=== PATIENT | male | born 1975 | race Caucasian/White ===

== ENCOUNTER 2021-07-29 23:45 | Emergency (ER) | payer BC, SELFPAY ==
--- NOTE | ~2021-07-29 | CT_ITS ---
EXAMINATION: CT brain wo con DATE: 07/30/2021 00:59 INDICATION: Syncope. Head injury. TECHNIQUE: Computed tomography (CT) of the head was performed without intravenous contrast. The mA wa s adjusted according to patient size. Iterative reconstruction technique was employed. The dose-lengt h product was 681.00 mGy-cm. COMPARISON: None FINDINGS: The cerebellar tonsils extend 6 mm inferior to foramen magnum, consistent with Chiari I mal formation. There is no intracranial hemorrhage, acute infarction, or abnormal intracranial mass lesio n. The ventricles are normal in size. There is mild mucosal thickening in the paranasal sinuses. The mastoid air cells are normal. The orbits are normal. IMPRESSION: 1. Chiari I malformation. Reviewed, dictated and finalized at location A. D LOADER IMPRESSION: 1. Chiari I malformation.
--- NOTE | ~2021-07-29 | XR_ITS ---
EXAMINATION: XR chest 2V DATE: 07/30/2021 00:14 INDICATION: Syncope. TECHNIQUE: Frontal and lateral views of the chest were obtained. COMPARISON: Chest 2 views 10/30/2015 FINDINGS: There are mild airspace opacities in the mid and lower lung zones. No pleural effusion or p neumothorax. The heart size is normal. There are changes of anterior fusion procedure in cervical spi ne. IMPRESSION: 1. Mild airspace opacities in the mid and lower lung zones, consistent with atelectasis versus pneumo stacie. Reviewed, dictated and finalized at location A. 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 Mild airspace opacities in the mid and lower lung zones, consistent with ate lectasis versus pneumonia.
[2021-07-29 23:43] VITALS: BP 165/100; PULSE 89; RESP 18; TEMP 36.1; O2SAT 97
[2021-07-29 23:57] VITALS: PULSE 87
--- NOTE | 2021-07-30 | ECG_ITS ---
Measurements Intervals [place] Rate: 90 P: 56 MI: 158 QRS: 27 QRSD: 94 T: 53 QT: 353 QTc: 433 Interpretive Statements SINUS RHYTHM POSSIBLE LEFT ATRIAL ENLARGEMENT INCOMPLETE RIGHT BUNDLE BRANCH BLOCK BASELINE ARTIFACT- I, II, III, AVR BORDERLINE ECG Electronically Signed On 07-30-2021 5:57:12 CANDY DIP[employer] by Stef Lennon D.O.
[2021-07-30 00:19] LABS: Basophils Absolute Auto 0.1 K/mm3 (0.0-0.1); Basophils Percent Auto 1.1 % (0.2-1.2); Eosinophils Absolute Auto 0.8 K/mm3 (0-0.3); Eosinophils Percent Auto 8.2 % (0-4.4); Hematocrit 42.7 % (42.0-52.0); Hemoglobin 14.2 g/dL (14.0-18.0); Immature Granulocyte Absolute 0.02 K/mm3 (0.00-0.031); Immature Granulocyte Percent A 0.2 % (0-0.5); Lymphocytes Absolute Auto 3.77 K/mm3 (0.9-3.2); Lymphocytes Percent Auto 41.3 % (18.3-44.2); Mean Corpuscular HGB Conc 33.3 g/dl (32-36); Mean Corpuscular Volume 90.3 fl (80-100); Mean Platelet Volume 10.2 fl (7.4-10.4); Monocytes Absolute Auto 0.7 K/mm3 (0.1-0.6); Monocytes Percent Auto 8.1 % (2.6-8.5); Neutrophils Absolute Auto 3.8 K/mm3 (1.3-6.7); Neutrophils Percent Auto 41.1 % (45.5-73.1); Platelet Count Result 220 k/mm3 (150-375); Red Blood Count 4.73 M/mm3 (4.6-6.20); Red Cell Distribution Width 13.4 % (11.5-14.5); White Blood Count 9.1 K/mm3 (4.5-10.0)
[2021-07-30 00:25] LABS: Prothrombin Time 12.3 Seconds (11.1-14.7)
[2021-07-30 00:26] LABS: Partial Thromboplastin Time 25.3 SECONDS (22.3-36.8)
[2021-07-30 00:28] LABS: Anion Gap 14 mmol/L (8-16); Blood Urea Nitrogen 10 mg/dL (9-20); Carbon Dioxide 23 mmol/L (22-30); Chloride 102 mmol/L (98-107); Estimated CRCL calculation 136 ml/min; Estimated Glomerular Filt Rate > 60; Glucose 101 mg/dL (65-110); Potassium 3.3 mmol/L (3.4-5.0); Sodium 139 mmol/L (137-145)
[2021-07-30 00:29] LABS: Ethanol 142 mg/dL (<10)
[2021-07-30 00:35] VITALS: BP 131/81; PULSE 78
[2021-07-30 00:36] VITALS: BP 139/84; PULSE 92
[2021-07-30 00:38] VITALS: BP 149/80; PULSE 90
[2021-07-30 00:40] LABS: Troponin I < 0.012 ng/mL (0.000-0.034)
[2021-07-30] MEDS: ACETAMINOPHEN 500 MG TABLET 1000 MG PO (00:45)
--- NOTE | 2021-07-30 00:58 | PC.NURSE ---
Returned from CT at this time.
[2021-07-30 00:59] VITALS: BP 145/72; PULSE 79; RESP 18; O2SAT 99
--- NOTE | 2021-07-30 01:09 | ED.SYNCOPE ---
HPI - Syncope General Chief Complaint: Syncope Stated Complaint: unresponsive x 5 min. now a/o x 3 Time Seen by Provider: 07/29/21 23:50 Related Data Home Medications Medication Instructions Recorded Confirmed meloxicam 15 mg PO DAILY 07/29/21 tramadol 50 mg PO Q6H PRN 07/29/21 07/29/21 Allergies Allergy/AdvReac Type Severity Reaction Status Date / Time hornet venom Allergy Anaphylaxis Verified 07/29/21 23:52 Review of Systems Review of Systems: All systems reviewed & are unremarkable except as noted in HPI and below Constitutional: Constitutional: Denies chills, Denies fever(s) and Denies weakness Eyes: Eyes: Denies change in vision ENT: Denies nasal congestion and Denies sore throat Cardiovascular: Cardiovascular: Denies chest pain, Denies rapid heart rate and Denies radiating jaw, neck or arm pain Respiratory: Respiratory: Denies cough, Denies dyspnea and Denies wheezing Gastrointestinal: Gastrointestinal: Denies abdominal pain, Denies diarrhea, Denies nausea and Denies vomiting Genitourinary: Genitourinary: Denies urinary incontinence Neurologic: Reports syncope, Denies headache(s), Denies focal weakness and Denies numbness PMFSH Past Medical History Medical History (Updated 07/30/21 @ 01:41 by Job Ballard MD) Healthy adult male Surgical History Surgical History (Updated 07/30/21 @ 01:16 by Job Ballard MD) H/O neck surgery History of back surgery History of shoulder surgery Social History Social History (Updated 07/30/21 @ 01:16 by Job Ballard MD) Alcohol intake: current Exam Narrative: GENERAL: Well-appearing, well-nourished, and in no acute distress. HEAD: Normocephalic, atraumatic. EYES: PERRL and EOMI. ENT: Mucous membranes moist. Small scratch lateral of the corner of the left lip. No evidence of injury to the tongue. CHEST: Clear to auscultation. No respiratory distress. HEART: Regular rate and rhythm. Normal peripheral pulses. ABDOMEN: Soft, nontender, nondistended. EXTREMITIES: Normal range of motion. No edema. SKIN: Warm, dry, no rash. NEURO: No focal deficits. Alert and oriented x3. PSYCH: Normal mood and affect. Course Course Emergency Course: Patient resting comfortably. Labs and vital signs unremarkable. Normal EKG. Symptoms likely related to alcohol intoxication. Discharge home. Vital Signs Vital signs: Vital Signs Temperature 97 F L 07/29/21 23:43 Pulse Rate 89 07/29/21 23:43 Respiratory Rate 18 07/29/21 23:43 Blood Pressure 165/100 H 07/29/21 23:43 Pulse Oximetry 97 07/29/21 23:43 Temperature 97 F L 07/29/21 23:43 Pulse Rate 79 07/30/21 00:59 Respiratory Rate 18 07/30/21 00:59 Blood Pressure 145/72 H 07/30/21 00:59 Pulse Oximetry 99 07/30/21 00:59 MDM - Syncope Lab Data Result diagrams: 07/30/21 00:07 07/30/21 00:07 Labs: Lab Results 07/30/21 07/30/21 07/30/21 Range/Units 00:07 00:07 00:07 WBC 9.1 (4.5-10.0) K/mm3 RBC 4.73 (4.6-6.20) M/mm3 Hgb 14.2 (14.0-18.0) g/dL Hct 42.7 (42.0-52.0) % MCV 90.3 (80-100) fl MCH 30.0 (26-34) pg MCHC 33.3 (32-36) g/dl RDW 13.4 (11.5-14.5) % Plt Count 220 (150-375) k/mm3 MPV 10.2 (7.4-10.4) fl Immature Gran % (Auto) 0.2 (0-0.5) % Neut % (Auto) 41.1 L (45.5-73.1) % Lymph % (Auto) 41.3 (18.3-44.2) % Cecil % (Auto) 8.1 (2.6-8.5) % Eos % (Auto) 8.2 H (0-4.4) % Baso % (Auto) 1.1 (0.2-1.2) % Lymph # (Auto) 3.77 H (0.9-3.2) K/mm3 Cecil # (Auto) 0.7 H (0.1-0.6) K/mm3 Eos # (Auto) 0.8 H (0-0.3) K/mm3 Baso # (Auto) 0.1 (0.0-0.1) K/mm3 Abs Immat Gran (auto) 0.02 (0.00-0.031) K/mm3 Absolute Neuts (auto) 3.8 (1.3-6.7) K/mm3 Absolute Nucleated RBC 0.0 (0.0-0.012) K/mm3 Nucleated RBC % 0.0 (0.0-0.2) % PT (11.1-14.7) Seconds INR APTT (22.3-36.8) SECONDS Sodium 139 (137-145) mmol/L Potassium
[2021-07-30 01:54] VITALS: BP 130/82; PULSE 74; RESP 18; TEMP 36.1; O2SAT 99
== END 2021-07-30 01:57 | disposition home or self-care (01) ==
PROVIDERS: Emergency Provider Emergency Medicine; PCP Family Medicine
DX: R55 Syncope and collapse (principal); F10.129 Alcohol abuse with intoxication, unspecified; Y90.6 Blood alcohol level of 120-199 mg/100 ml; R94.31 Abnormal electrocardiogram [ECG] [EKG]; I45.10 Unspecified right bundle-branch block
CPT/HCPCS: 36415; 70450; 71046; 80048; 80307; 84484; 85025; 85610; 85730; 93005; 99284; A9270

== ENCOUNTER 2022-04-28 09:03 | Emergency (ER) | payer BC, SELFPAY ==
[2022-04-28 09:30] VITALS: BP 130/87; PULSE 75; RESP 20; TEMP 36.1; O2SAT 100
--- NOTE | 2022-04-28 09:46 | ED.URI ---
HPI - URI/Sore Throat General Chief Complaint: Upper Respiratory Infection Stated Complaint: Sinus Time Seen by Provider: 04/28/22 09:46 Source: patient Mode of arrival: ambulatory Limitations: no limitations History of Present Illness HPI Narrative: 56-year-old male presents with complaint of nasal congestion, sinus pressure, postnasal drainage, fatigue, sweats for 3 days. Unsure if he has had a fever. States son has been sick with similar symptoms. Denies nausea vomiting diarrhea. Reports that his primary care physician always gave him steroids and antibiotic for sinus infections. All systems reviewed and negative except as noted above. Related Data Home Medications Medication Instructions Recorded Confirmed meloxicam 15 mg tablet 15 mg PO DAILY 07/29/21 tramadol 50 mg tablet 50 mg PO Q6H PRN Pain 07/29/21 07/29/21 Allergies Allergy/AdvReac Type Severity Reaction Status Date / Time hornet venom Allergy Anaphylaxis Verified 08/10/21 09:36 Review of Systems Review of Systems: CONSTITUTIONAL: Reports fever, chills, or sweats. EYES: Denies visual changes, redness, or discharge. ENT: reports rhinorrhea, congestion, sore throat. Denies otalgia. CARDIOVASCULAR: Denies chest pain, palpitations, or edema. RESPIRATORY: Denies cough or dyspnea. GASTROINTESTINAL: Denies abdominal pain, nausea, vomiting, or diarrhea. GENITOURINARY: Denies dysuria or hematuria. SKIN: Denies rash or itching. MUSCULOSKELETAL: Denies back pain, joint pain, or myalgia. NEUROLOGIC: Denies headache, numbness, or weakness. PSYCHIATRIC: Denies anxiety or depression. All other systems reviewed are negative, except as documented in HPI. [facility] Past Medical History Medical History (Updated 04/28/22 @ 10:05 by Syeda Dave NP) Healthy adult male Surgical History Surgical History (System 08/10/21 @ 09:36 by Cholo Franz) H/O neck surgery History of back surgery History of shoulder surgery Family History Family History (System 08/10/21 @ 09:36 by Cholo Franz) Mother Cerebrovascular accident Social History Social History (System 08/10/21 @ 09:36 by Cholo Franz) Alcohol intake: current Comments At time of signature, agree with nursing past medical, surgical, social and family history. There is no relevant family history pertinent to the presenting complaint. Exam Narrative: GENERAL: This is a well-nourished, well-developed patient, in no apparent distress. HEAD: normocephalic, atraumatic. EYES: PERRL. Sclera clear/white. Vision is grossly intact. EARS: External ears normal, auditory canals clear and without drainage, reports fluid bilateral TMs without erythema or perforation. NOSE: External nose normal with Clear nasal drainage, moderate congestion, bilateral maxillary sinus and frontal tenderness. THROAT: Mucous membranes moist, Erythema posterior pharynx with clear postnasal drainage. NECK: Neck supple, non-tender without lymphadenopathy, masses or thyromegaly. CARDIOVASCULAR: Regular rate and rhythm without murmurs, gallops, or rubs. RESPIRATORY: Clear to auscultation. Breath sounds equal bilaterally. No wheezes, rales, or rhonchi. SKIN: warm, Dry, intact with no suspicious lesions or rash, good texture and turgor. NEURO: awake, alert, and oriented to person, place and time. There were no obvious focal neurologic abnormalities. EXTREMITIES: No joint tenderness, effusion, or edema noted. Course Course Level of Care: Express Care Visit Vital Signs Vital signs: Vital Signs Temperature 36.1 C L 04/28/22 09:30 Pulse Rate 75 04/28/22 09:30 Respiratory Rate 20 04/28/22 09:30 Blood Pressure 130/87 04/28/22 09:30 Pulse Oximetry 100 04/28/22 09:30 Oxygen Delivery Room Air 04/28/22 09:30 Temperature 36.1 C L 04/28/22 09:30 Pulse Rate 75 04/28/22 09:30 Respiratory Rate 20 04/28/22 09:30 Blood Pressure 130/87 04/28/22 09:30 Pulse Oximetry 100 04/28/22 09:30 Oxygen
== END 2022-04-28 10:18 | disposition home or self-care (01) ==
PROVIDERS: Emergency Provider Nurse Practitioner Family; PCP Family Medicine
DX: J10.1 Influenza due to other identified influenza virus with other respiratory manifestations (principal); K21.9 Gastro-esophageal reflux disease without esophagitis
CPT/HCPCS: 87804; 99213; G0463

== ENCOUNTER 2025-02-18 10:58 | Emergency (ER) | payer BC, SELFPAY ==
[2025-02-18 11:07] VITALS: BP 146/74; PULSE 84; RESP 20; TEMP 37.2; O2SAT 99
--- NOTE | 2025-02-18 11:28 | ED.CHESTPAIN ---
HPI - Chest Pain General Chief Complaint: Chest Pain Stated Complaint: chest pain Time Seen by Provider: 02/18/25 11:29 Mode of arrival: ambulatory Limitations: no limitations History of Present Illness HPI narrative: 49-year-old male presents with concern for chest pain. Reports prior to arrival he had a 10 episode midsternal heavy chest pain. Reports the pain went away and he is no longer having chest pain. He denies shortness of breath, diaphoresis, nausea, back pain, arm pain. He denies any aggravating factors. MD complaint: chest pain Related Data Home Medications ?Medication ?Instructions ?Recorded ?Confirmed ?Last Taken ?Type meloxicam 15 mg tablet 15 mg PO DAILY 07/29/21 02/18/25 Unknown History tramadol 50 mg tablet 50 mg PO Q6H PRN Pain 07/29/21 02/18/25 Unknown History atorvastatin 10 mg tablet 10 mg PO QPM 02/18/25 02/18/25 Unknown History phentermine 37.5 mg tablet 37.5 mg PO DAILY 02/18/25 02/18/25 Unknown History Allergies Allergy/AdvReac Type Severity Reaction Status Date / Time hornet venom Allergy Anaphylaxis Verified 02/18/25 11:00 Review of Systems Review of Systems: CONSTITUTIONAL: Denies malaise, chills, sweats, or fever. ENT: Denies rhinorrhea, congestion, sinus pain, otalgia or sore throat. CARDIOVASCULAR: Reports 1 episode of chest pain. Denies palpitations, or edema. RESPIRATORY: Denies cough or dyspnea. GASTROINTESTINAL: Denies nausea, vomiting MUSCULOSKELETAL: Denies myalgia. NEUROLOGIC: Denies numbness, weakness, or headache. All systems reviewed & are unremarkable except as noted in HPI and below [facility] Past Medical History Medical History (Updated 02/18/25 @ 12:03 by Earlene Mckeon NP) Healthy adult male Surgical History Surgical History (System 08/10/21 @ 09:36 by Cholo Franz) History of shoulder surgery H/O neck surgery History of back surgery Family History Family History (System 08/10/21 @ 09:36 by Cholo Franz) Mother Cerebrovascular accident Social History Social History (System 08/10/21 @ 09:36 by Cholo Franz) Alcohol intake: current Comments At time of signature, agree with nursing past medical, surgical, social and family history. There is no relevant family history pertinent to the presenting complaint Exam Narrative: GENERAL: Well-appearing, well-nourished, and in no acute distress. HEAD: Normocephalic, atraumatic. EYES: PERRLA, sclera clear, and EOMI. ENT: Nares clear. Mucous membranes moist. NECK: Supple. CHEST: No respiratory distress. Clear to auscultation. No bony deformities, no asymmetry. Speaks in full sentences. HEART: Regular rate and rhythm. No murmur heard. Normal peripheral pulses. EXTREMITIES: Normal range of motion. No edema. Normal strength and sensation. SKIN: Warm, dry, no visible rash. NEURO: Alert and oriented x3. PSYCH: Normal mood and affect Course Course Emergency Course: I discussed EKG findings with this patient discussed limited diagnostic capability at [facility] chest pain. Offered transfer to emergency room for further evaluation, which patient refuses. I advised patient that if the symptoms return, worsen he should go to the emergency room right away. I advised him to call his mold washer today for an appointment. Patient agrees to follow-up as directed and is aware of reasons to seek care at the emergency department. Portions of this record may have been created with voice recognition software Level of Care: [facility] Visit Vital Signs Vital signs: Vital Signs Temperature 99.0 F 02/18/25 11:07 Pulse Rate 84 02/18/25 11:07 Respiratory Rate 20 02/18/25 11:07 Blood Pressure 146/74 H 02/18/25 11:07 Pulse Oximetry 99 02/18/25 11:07 Oxygen Delivery Room Air 02/18/25 11:07 Temperature 99.0 F 02/18/25 11:07 Pulse Rate 84 02/18/25 11:07 Respiratory Rate 20 02/18/25 11:07 Blood Pressure 146/74 H 02/18/25 11:07 Pulse Oximetry 99 02/18/25 11:07 Oxygen Delivery Room Air 02/18/25 11:07 Reviewed. MDM - Chest Pain MDM Narrative Medical decision making narrative: I evaluated this patient in the [facility]. History is obtained from patient who is an independent historian and physical exam was performed.? Available medical records were reviewed. ? Exam findings and relevant testing show no acute concerns or changes; patient is non-toxic appearing and is in no distress. ? Differential diagnosis and treatment plan were discussed with the patient. Patient does not agree with transfer to emergency room. Anticipatory guidance given. All questions were answered to the patient's satisfaction. Patient is appropriate for outpatient treatment and follow-up. Critical Care Time Critical Care Time Critical Care Time: No Discharge Plan Discharge Clinical Impression: Chest pain Patient Disposition: Home Condition: Stable Instructions: Chest Pain (ED) Additional Instructions: Your EKG at [facility] looks normal. As we discussed, this cannot completely rule out any cardiac abnormalities. Because you do not want to go to the emergency room today I recommend you call your mold washer in get an appointment for further evaluation. If have another episode of chest pain, shortness of breath sweating, nausea you should go to the emergency room right away. Patient Language: Thai Prescriptions: No Action atorvastatin 10 mg tablet 10 mg PO QPM phentermine 37.5 mg tablet 37.5 mg PO DAILY meloxicam 15 mg Tablet 15 mg PO DAILY tramadol 50 mg Tablet 50 mg PO Q6H PRN (Reason: Pain) Follow-up/Referrals: Pat,MD Joce [Primary Care Provider, Unknown] Stand Alone Forms: Work/School Release IP Time of Disposition: 12:02
--- NOTE | 2025-02-18 11:30 | ECG_ITS ---
Test Date: 2025-02-18 11:23:04 Measurements Intervals [place] Rate: 75 P: 45 OR: 160 QRS: 27 QRSD: 90 T: 41 QT: 365 QTc: 410 Interpretive Statements SINUS RHYTHM No previous ECG available for comparison Electronically Signed On 02-18-2025 12:44:07 CDT by Michael Calvo M.D.
== END 2025-02-18 12:08 | disposition home or self-care (01) ==
PROVIDERS: Emergency Provider Nurse Practitioner; PCP Family Medicine
DX: R07.9 Chest pain, unspecified (principal)
CPT/HCPCS: 93005; 99213; G0463